=== PATIENT | female | born 1975 | race Caucasian/White ===

== ENCOUNTER → 2016-06-11 | Outpatient (CLI) | payer OTHER ==
[~2016-06-11] MED LIST: FLUO20CA35 PO
== END | disposition home or self-care (01) ==
LOC: C.PAPS 11:40
PROVIDERS: ATTEND Physician Assistant
DX: Z01.419 Encounter for gynecological examination (general) (routine) without abnormal findings (principal)

== ENCOUNTER 2017-03-04 09:19 | Emergency (ER) | payer OTHER ==
[~2017-03-04] VITALS: Ht 157.5 cm; Wt 107.0 kg
[2017-03-04 09:21] VITALS: Ht 157.5 cm; Wt 107.0 kg
--- NOTE | 2017-03-04 09:40 | EMERGENCY ROOM VISIT NOTE ---
History First contact with patient: 09:31 Chief Complaint: ABDOMINAL PAIN Stated Complaint: BURNING FROM BELLY BUTTON TO RIGHT SIDE History of Present Illness The patient is a 41 year old female who presents to the Emergency Room via private vehicle with complaints of "burning from belly button to right side". The patient states that for quite some time now she's been experiencing waxing and waning right upper quadrant abdominal pain. She states that yesterday evening was when she developed a constant right upper quadrant pain now that is severe and will not decrease. She rates the overall pain as a 5/10. She is not had any food today. She denies any diarrhea, nausea or vomiting or chest pain or shortness of breath. She rates the pain as sharp. She states that she has had pain in the area and evaluated previously without any results. Review of Systems A complete 10-point Review of Systems was discussed with the patient, with pertinent positives and negatives listed in the History of Present Illness. All remaining Review of Systems questions can be considered negative unless otherwise specified. Past Medical/Surgical History No pertinent Family History No pertinent Social History Smoking Status: Current Every Day Smoker Alcohol Use: occasionally Pt. lives locally Current/Historical Medications Scheduled Omeprazole (Omeprazole), 1 TAB PO DAILY Ranitidine (Zantac), 150 MG PO BID Physical Exam Vital Signs Date Time Temp Pulse Resp B/P (MAP) Pulse Ox O2 Delivery O2 Flow Rate FiO2 03/04/17 11:42 70 18 111/80 97 Room Air 03/04/17 10:45 86 16 107/76 96 Room Air 03/04/17 09:21 37.1 103 18 138/84 96 Room Air Physical Exam VITAL SIGNS - Vital signs and nursing notes were reviewed. Stable. GENERAL -41-year-old female appearing her stated age who is in no acute distress. Communicates well with provider and answers questions appropriately. SKIN - Without rashes. No petechial rashes. HEAD - NC/AT. EYES - Sclera anicteric. EARS - No deformities of external structures noted on gross examination bilaterally. NOSE - Midline and without cyanosis. No epistaxis or purulent drainage noted. MOUTH/OROPHARYNX - Without perioral cyanosis. NECK - Neck with FROM. LUNGS - Chest wall symmetric without accessory muscle use, intercostals retractions, or central cyanosis. Normal vesicular breath sounds CTA B/L. No wheezes, rales, or rhonchi appreciated. CARDIAC - RRR with S1/S2. No murmur, rubs, or gallops appreciated. ABDOMEN - Abdominal contour normal without pulsations or visible masses. BS normoactive all four quadrants. There is right upper quadrant tenderness. Negative Joyce sign. No palpable masses, hepatosplenomegaly, or ascites noted. EXTREMITIES - No clubbing or peripheral cyanosis. No pretibial edema present. + 5/5 strength noted in UE/LE bilaterally. NEUROLOGIC - Cranial nerves II through XII grossly intact. Sensory intact to light touch throughout. PSYCH - A&O, and cooperates fully with examiner. Pt is very pleasant and interacts well with examiner. Medical Decision & Procedures ER Provider Diagnostic Interpretation: GALLBLADDER-ABD LIMITED CLINICAL HISTORY: RUQ pain pain. Nausea. TECHNIQUE: Ultrasound COMPARISON STUDY: 10/24/2013 FINDINGS: Normal gallbladder. Common bile duct 3 mm. Mild fatty infiltration of liver. Pancreas and right kidney are unremarkable. IMPRESSION: Mild fatty infiltration of liver. Otherwise negative study. The above report was generated using voice recognition software. It may contain grammatical, syntax or spelling errors. Electronically signed by: Canelo Dobson M.D. 03/04/2017 10:30 AM Dictated Date/Time: 03/04/2017 10:29 AM ABD/PELVIS IV CONTRAST ONLY CLINICAL HISTORY: 41 years-old Female presenting with RUQ abd pain. TECHNIQUE: Multidetector CT of the abdomen and pelvis was performed after the administration of intravenous contrast. IV contrast: 95 mL of Optiray 320. A dose lowering technique was used consistent with the principles of ALARA (as low as reasonably achievable). COMPARISON: Ultrasound performed earlier the same day and CT from 07/10/2007. CT DOSE (mGy.cm): The estimated cumulative dose is 1537.29 mGy.cm. FINDINGS: Network Cable Installer topogram: Unremarkable. Lung bases: Minimal dependent changes likely atelectasis. Normal heart size. No pericardial or pleural effusion. Liver: Well-defined hypodensities in the left hepatic lobe, new since 2007, most likely hepatic cysts or hamartomas. Normal liver morphology. Patent hepatic vasculature. Biliary: No intrahepatic or extrahepatic biliary ductal dilatation. Normal gallbladder. Pancreas: Normal. Spleen: Normal. Adrenal glands: Normal. Kidneys and ureters: Normal. No hydronephrosis. Bladder: Incompletely evaluated secondary to underdistention. Pelvic organs: Uterus and ovaries normal. Bowel: Normal appendix. No bowel obstruction. Diverticulosis of the sigmoid colon. Peritoneal cavity: No free fluid or intraperitoneal gas. Lymph nodes: No enlarged lymph nodes in the abdomen or pelvis. Vasculature: Aorta and IVC patent and normal in caliber. Abdominal wall: Small fat-containing umbilical hernia. Musculoskeletal: Normal. IMPRESSION: 1. No acute intra-abdominal pathology. 2. Diverticulosis. 3. No appendicitis. Electronically signed by: Antonino Echavarria M.D. 03/04/2017 12:32 PM Dictated Date/Time: 03/04/2017 12:26 PM Laboratory Results 03/04/17 09:53 Red Blood Count 4.76, Mean Corpuscular Volume 89.1, Mean Corpuscular Hemoglobin 30.5, Mean Corpuscular Hemoglobin Concent 34.2, Mean Platelet Volume 10.0, Neutrophils (%) (Auto) 67.2, Lymphocytes (%) (Auto) 22.6, Monocytes (%) (Auto) 6.5, Eosinophils (%) (Auto) 3.0, Basophils (%) (Auto) 0.4, Neutrophils # (Auto) 6.57, Lymphocytes # (Auto) 2.21, Monocytes # (Auto) 0.64, Eosinophils # (Auto) 0.29, Basophils # (Auto) 0.04 03/04/17 09:53 Test 03/04/17 00:00 03/04/17 09:53 Urine Color YELLOW Urine Appearance CLEAR (CLEAR) Urine pH 6.0 (4.5-7.5) Urine Specific [place] 1.017 (1.000-1.030) Urine Protein NEG (NEG) Urine Glucose (UA) NEG (NEG) Urine Ketones NEG (NEG) Urine Occult Blood NEG (NEG) Urine Nitrite NEG (NEG) Urine Bilirubin NEG (NEG) Urine Urobilinogen NEG (NEG) Urine Leukocyte Esterase SMALL (NEG) Urine WBC (Auto) 1-5 /hpf (0-5) Urine RBC (Auto) 0-4 /hpf (0-4) Urine Hyaline Casts (Auto) 0 /lpf (0-5) Urine Epithelial Cells (Auto) >30 /lpf (0-5) Urine Bacteria (Auto) NEG (NEG) Urine Test NEG (NEG) White Blood Count 9.78 K/uL (4.8-10.8) Red Blood Count 4.76 M/uL (4.2-5.4) Hemoglobin 14.5 g/dL (12.0-16.0) Hematocrit 42.4 % (37-47) Mean Corpuscular Volume 89.1 fL (80-100) Mean Corpuscular Hemoglobin 30.5 pg (25-34) Mean Corpuscular Hemoglobin Concent 34.2 g/dl (32-36) Platelet Count 330 K/uL (130-400) Mean Platelet Volume 10.0 fL (7.4-10.4) Neutrophils (%) (Auto) 67.2 % Lymphocytes (%) (Auto) 22.6 % Monocytes (%) (Auto) 6.5 % Eosinophils (%) (Auto) 3.0 % Basophils (%) (Auto) 0.4 % Neutrophils # (Auto) 6.57 K/uL (1.4-6.5) Lymphocytes # (Auto) 2.21 K/uL (1.2-3.4) Monocytes # (Auto) 0.64 K/uL (0.11-0.59) Eosinophils # (Auto) 0.29 K/uL (0-0.5) Basophils # (Auto) 0.04 K/uL (0-0.2) RDW Standard Deviation 41.5 fL (36.4-46.3) RDW Coefficient of Variation 12.8 % (11.5-14.5) Immature Granulocyte % (Auto) 0.3 % Immature Granulocyte # (Auto) 0.03 K/uL (0.00-0.02) Anion Gap 7.0 mmol/L (3-11) Est Creatinine Clear Calc Drug Dose 112.8 ml/min Estimated GFR () 112.7 Estimated GFR (Non- 97.3 BUN/Creatinine Ratio 17.8 (10-20) Calcium Level 8.6 mg/dl (8.5-10.1) Total Bilirubin 0.4 mg/dl (0.2-1) Direct Bilirubin < 0.1 mg/dl (0-0.2) Aspartate Amino Transf (AST/SGOT) 13 U/L (15-37) Alanine Aminotransferase (ALT/SGPT) 20 U/L (12-78) Alkaline Phosphatase 73 U/L (45-117) Troponin I < 0.015 ng/ml (0-0.045) Total Protein 7.1 gm/dl (6.4-8.2) Albumin 3.6 gm/dl (3.4-5.0) Lipase 179 U/L (73-393) Medical Decision Patient was seen and evaluated as above. She presents today with right upper quadrant abdominal pain. It is not worse with inspiration. It is reproducible on exam. There was no chest pain or shortness of breath. IV access was initiated, any above workup was performed. R Upper quadrant ultrasound was obtained. She declined pain medication. Mild fatty infiltration of liver, otherwise negative. Benefits versus risk of obtaining CT scan was discussed with the patient secondary to her level of pain. Decision was made to scan. Essentially no acute intra-abdominal process. I suspect she most likely that is experiencing reflux/gastritis. A bedside EKG was performed because of her location of pain were to reveals normal sinus rhythm with sinus arrhythmia, left axis deviation. I do not suspect any acute change from her previous EKG. Troponin was negative. Her blood work, CBC reveals no concern of leukocytosis or anemia. Slight elevation of neutrophils. Metabolic process reveals no evidence of kidney or liver failure. Troponin negative. Urine negative. Urine test is negative. She appears stable for outpatient management and again declines pain medication. She'll be given a 7 week supply of Zantac followed by 4 weeks Prilosec. Zantac will be given as it is faster onset with the Prilosec helping for continuous relief. Case was discussed with the attending physician. She was educated upon management, educated upon worrisome symptoms which to return, had questions and provided discharge, and was discharged home in good condition. In evaluation treatment this patient following differential diagnoses were obtained: Gastritis, appendicitis, MA, PE, ascending cholangitis, biliary colic , gallstones, cholecystitis, pancreatitis, among others. Impression Primary Impression: Gastritis Departure Information Dispostion Home / Self-Care Condition GOOD Prescriptions Omeprazole (OMEPRAZOLE) 20 Mg Tab 1 TAB PO DAILY for 40 Days, #40 TAB 1 Refill Prov: Itz Sanchez PA-C 03/04/17 Ranitidine (Zantac) 150 Mg Tab 150 MG PO BID for 7 Days, #14 TAB Prov: Itz Sanchez PA-C 03/04/17 Referrals Falguni Hennessy C.R.N.P. (PCP) Patient Instructions My [facility] Additional Instructions You have been treated in the Emergency Department your Abdominal Pain. Laboratory results and imaging studies have ruled out any emergent causes for your abdominal pain which would warrant admission or surgery. Zantac 150mg by mouth every 12 hours. Prilosec 20mg daily for 4 weeks. I recommend foods low in acid and spice. For pain control, you can use the following [id number] medicines (if >12 yo): - Regular strength (325mg/tab) Tylenol (acetaminophen) 2 tabs every 4-6 hours as needed. Do not exceed 12 tablets in a 24 hour period. Avoid taking more than 3 grams (3000 mg) of Tylenol per day. This includes any other sources of acetaminophen you may take on a regular basis. Drink plenty of water and stay well hydrated. As with any trip to the Emergency Department, you should follow-up with your Primary Care Provider from today's visit. Return to the emergency department if your symptoms persist despite treatment plan outlined above or if the following symptoms occur: increased fevers, chills , worsening nausea/vomiting, blood in your stool or urine.
[2017-03-04 10:16] LABS: BASO % 0.4 %; BASO ABS # 0.04 K/uL (0-0.2); COMPLETE YES; HEMATOCRIT 42.4 % (37-47); IG% 0.3 %; LYMPH % 22.6 %; LYMPH ABS # 2.21 K/uL (1.2-3.4); MEAN CELL VOLUME 89.1 fL (80-100); MEAN CORPUSCULAR HEMOGLOBIN 30.5 pg (25-34); MEAN CORPUSCULAR HGB CONC 34.2 g/dl (32-36); MONO % 6.5 %; NEUT % 67.2 %; PLATELET COUNT 330 K/uL (130-400); RED BLOOD COUNT 4.76 M/uL (4.2-5.4); WHITE BLOOD COUNT 9.78 K/uL (4.8-10.8)
[2017-03-04 10:30] LABS: ALT/SGPT 20 U/L (12-78); BLOOD UREA NITROGEN 14 mg/dl (7-18); BUN/CREATININE RATIO 17.8 (10-20); CALCIUM 8.6 mg/dl (8.5-10.1); CARBON DIOXIDE 23 mmol/L (21-32); CHLORIDE 108 mmol/L (98-107); CREATININE 0.77 mg/dl (0.60-1.20); GLUCOSE 91 mg/dl (70-99); POTASSIUM 3.8 mmol/L (3.5-5.1); SODIUM 138 mmol/L (136-145)
--- NOTE | 2017-03-04 10:31 | DIAGNOSTIC IMAGING REPORT ---
GALLBLADDER-ABD LIMITED CLINICAL HISTORY: RUQ pain pain. Nausea. TECHNIQUE: Ultrasound COMPARISON STUDY: 10/24/2013 FINDINGS: Normal gallbladder. Common bile duct 3 mm. Mild fatty infiltration of liver. Pancreas and right kidney are unremarkable. IMPRESSION: Mild fatty infiltration of liver. Otherwise negative study. The above report was generated using voice recognition software. It may contain grammatical, syntax or spelling errors. Electronically signed by: Canelo Dobson M.D. 03/04/2017 10:30 AM Dictated Date/Time: 03/04/2017 10:29 AM
[2017-03-04 10:33] LABS: ALKALINE PHOSPHATASE 73 U/L (45-117); AST/SGOT 13 U/L (15-37)
[2017-03-04 10:51] LABS: URINE APPEARANCE CLEAR (CLEAR); URINE BILIRUBIN NEG (NEG); URINE COLOR YELLOW; URINE EPITHELIAL CELL AUTO >30 /lpf (0-5); URINE NITRITE NEG (NEG); URINE SPECIFIC GRAVITY 1.017 (1.000-1.030); UROBILINOGEN NEG (NEG); ZZUR CULT IF INDIC CLEAN CATCH NO
[2017-03-04 10:52] LABS: MANUAL MICROSCOPIC REQUIRED? NO; REVIEW REQ? NO
[2017-03-04] MEDS ORDERED: OPTIRAY 320 IV PRN (12:00)
--- NOTE | 2017-03-04 12:34 | DIAGNOSTIC IMAGING REPORT ---
ABD/PELVIS IV CONTRAST ONLY CLINICAL HISTORY: 41 years-old Female presenting with RUQ abd pain. TECHNIQUE: Multidetector CT of the abdomen and pelvis was performed after the administration of intravenous contrast. IV contrast: 95 mL of Optiray 320. A dose lowering technique was used consistent with the principles of ALARA (as low as reasonably achievable). COMPARISON: Ultrasound performed earlier the same day and CT from 07/10/2007. CT DOSE (mGy.cm): The estimated cumulative dose is 1537.29 mGy.cm. FINDINGS: Auricular Therapist topogram: Unremarkable. Lung bases: Minimal dependent changes likely atelectasis. Normal heart size. No pericardial or pleural effusion. Liver: Well-defined hypodensities in the left hepatic lobe, new since 2007, most likely hepatic cysts or hamartomas. Normal liver morphology. Patent hepatic vasculature. Biliary: No intrahepatic or extrahepatic biliary ductal dilatation. Normal gallbladder. Pancreas: Normal. Spleen: Normal. Adrenal glands: Normal. Kidneys and ureters: Normal. No hydronephrosis. Bladder: Incompletely evaluated secondary to underdistention. Pelvic organs: Uterus and ovaries normal. Bowel: Normal appendix. No bowel obstruction. Diverticulosis of the sigmoid colon. Peritoneal cavity: No free fluid or intraperitoneal gas. Lymph nodes: No enlarged lymph nodes in the abdomen or pelvis. Vasculature: Aorta and IVC patent and normal in caliber. Abdominal wall: Small fat-containing umbilical hernia. Musculoskeletal: Normal. IMPRESSION: 1. No acute intra-abdominal pathology. 2. Diverticulosis. 3. No appendicitis. Electronically signed by: Antonino Echavarria M.D. 03/04/2017 12:32 PM Dictated Date/Time: 03/04/2017 12:26 PM
[2017-03-04] MEDS ORDERED: OMEP20TA PO (12:54)
[2017-03-04] MEDS ORDERED: ZNTT/150 PO (12:54)
[2017-03-04 13:15] VITALS: BP 116/78; PULSE 70; TEMP 37.1; O2SAT 97
== END 2017-03-04 13:16 | disposition home or self-care (01) ==
LOC: C.EDB 09:20 → C.EDC 13:16
DX: K29.70 Gastritis, unspecified, without bleeding (principal); F17.210 Nicotine dependence, cigarettes, uncomplicated; Z79.899 Other long term (current) drug therapy

== ENCOUNTER → 2017-04-08 | Outpatient (CLI) | payer OTHER ==
[2017-04-08 14:51] LABS: ALBUMIN 3.7 gm/dl (3.4-5.0); ALKALINE PHOSPHATASE 82 U/L (45-117); ALT/SGPT 25 U/L (12-78); AST/SGOT 14 U/L (15-37); BLOOD UREA NITROGEN 12 mg/dl (7-18); BUN/CREATININE RATIO 14.8 (10-20); CALCIUM 9.2 mg/dl (8.5-10.1); CARBON DIOXIDE 24 mmol/L (21-32); CHLORIDE 105 mmol/L (98-107); CREATININE 0.79 mg/dl (0.60-1.20); EstGFR CKD-E AfrAm 109.3; EstGFR CKD-E NON AfrAm 94.3; HDL CHOLESTEROL 53 mg/dl; SODIUM 136 mmol/L (136-145)
[2017-04-08 14:51] LABS: GLUCOSE 81 mg/dl (70-99)
[2017-04-08 14:52] LABS: ALB/GLOB RATIO 0.9 (0.9-2); BASO % 0.5 %; BASO ABS # 0.04 K/uL (0-0.2); CHOLESTEROL 169 mg/dl (0-200); CHOLESTEROL/HDL RATIO 3.2; COMPLETE YES; EOS % 3.5 %; HEMATOCRIT 43.5 % (37-47); IG# 0.02 K/uL (0.00-0.02); IG% 0.2 %; LDL CHOLESTEROL CALCULATED 90 mg/dl; LYMPH % 30.2 %; LYMPH ABS # 2.58 K/uL (1.2-3.4); MEAN CELL VOLUME 88.6 fL (80-100); MEAN CORPUSCULAR HEMOGLOBIN 30.5 pg (25-34); MEAN CORPUSCULAR HGB CONC 34.5 g/dl (32-36); MEAN PLATELET VOLUME 10.4 fL (7.4-10.4); MONO % 6.2 %; MONO ABS # 0.53 K/uL (0.11-0.59); NEUT % 59.4 %; NEUT ABS # 5.06 K/uL (1.4-6.5); PLATELET COUNT 424 K/uL (130-400); RED BLOOD COUNT 4.91 M/uL (4.2-5.4); RED CELL DISTRIBUTION WIDTH CV 12.6 % (11.5-14.5); RED CELL DISTRIBUTION WIDTH SD 40.3 fL (36.4-46.3); TRIGLYCERIDES 131 mg/dl (0-150); VERY LOW DENSITY LIPOPROT CALC 26 mg/dl; WHITE BLOOD COUNT 8.53 K/uL (4.8-10.8)
== END | disposition home or self-care (01) ==
LOC: C.LAB1850 12:48
DX: E83.51 Hypocalcemia (principal); E66.9 Obesity, unspecified

== ENCOUNTER 2017-05-07 08:02 | Emergency (ER) | payer OTHER ==
[~2017-05-07] VITALS: Ht 157.5 cm; Wt 106.5 kg
[~2017-05-07 08:02] MED LIST changes: -FLUO20CA35 PO; +OMEP20TA PO
[2017-05-07 08:13] VITALS: TEMP 36.9; Ht 157.5 cm; Wt 106.5 kg
[2017-05-07] MEDS ORDERED: HYDROmorphone INJ 0.5 MG/0.5 ML SYR IV STA (08:15)
[2017-05-07] MEDS ORDERED: SODIUM CHLORIDE 0.9% 1000ML 1,000 ML IV STA (08:15)
[2017-05-07] MEDS ORDERED: ONDANSETRON 8 MG/54 ML D5W IV STA (08:15)
[2017-05-07 08:56] LABS: BASO % 0.9 %; BASO ABS # 0.06 K/uL (0-0.2); EOS % 4.3 %; EOS ABS # 0.28 K/uL (0-0.5); HEMATOCRIT 42.1 % (37-47); HEMOGLOBIN 14.5 g/dL (12.0-16.0); IG# 0.01 K/uL (0.00-0.02); LYMPH ABS # 1.84 K/uL (1.2-3.4); MEAN CELL VOLUME 86.8 fL (80-100); MEAN CORPUSCULAR HEMOGLOBIN 29.9 pg (25-34); MEAN CORPUSCULAR HGB CONC 34.4 g/dl (32-36); MEAN PLATELET VOLUME 9.1 fL (7.4-10.4); MONO % 6.4 %; MONO ABS # 0.42 K/uL (0.11-0.59); NEUT % 60.2 %; NEUT ABS # 3.97 K/uL (1.4-6.5); PLATELET COUNT 355 K/uL (130-400); RED CELL DISTRIBUTION WIDTH CV 12.3 % (11.5-14.5); RED CELL DISTRIBUTION WIDTH SD 39.7 fL (36.4-46.3); WHITE BLOOD COUNT 6.58 K/uL (4.8-10.8)
[2017-05-07 09:09] LABS: ALBUMIN 3.5 gm/dl (3.4-5.0); ALT/SGPT 22 U/L (12-78); BLOOD UREA NITROGEN 13 mg/dl (7-18); CALCIUM 8.9 mg/dl (8.5-10.1); CARBON DIOXIDE 22 mmol/L (21-32); CREATININE 0.78 mg/dl (0.60-1.20); GLUCOSE 87 mg/dl (70-99); LIPASE 152 U/L (73-393); SODIUM 139 mmol/L (136-145)
[2017-05-07 09:17] LABS: ALKALINE PHOSPHATASE 67 U/L (45-117); AST/SGOT 12 U/L (15-37); TOTAL PROTEIN 7.2 gm/dl (6.4-8.2)
--- NOTE | 2017-05-07 09:53 | DIAGNOSTIC IMAGING REPORT ---
ABDOMEN LIMITED (US) HISTORY: 41 years-old Female EPIGASTRIC/RUQ ABDOMINAL PAIN acute right upper quadrant abdominal pain COMPARISON: Right upper quadrant ultrasound and CT 03/04/2017 TECHNIQUE: Multiple real-time sonogram images of the abdominal right upper quadrant were obtained assessing grayscale appearance and color flow FINDINGS: Imaged pancreas is unremarkable. There is slightly increased echogenicity with poor through transmission of the liver suggesting fatty infiltration. No focal hepatic mass lesions or intrahepatic biliary ductal dilation. The gallbladder is within normal limits without wall thickening, cholelithiasis or pericholecystic fluid. Common bile duct is normal, 3 mm. Imaged right kidney measures 11.5 x 4.0 x 5.5 cm without hydronephrosis. IMPRESSION: 1. No cholelithiasis or sonographic evidence of acute cholecystitis. 2. Fatty infiltration of the liver. 3. No biliary ductal dilation. The above report was generated using voice recognition software. It may contain grammatical, syntax or spelling errors. Electronically signed by: Dimitry Samuels M.D. 05/07/2017 9:52 AM Dictated Date/Time: 05/07/2017 9:47 AM
--- NOTE | 2017-05-07 10:02 | EMERGENCY ROOM VISIT NOTE ---
ED Visit Note First contact with patient: 08:15 I have seen and examined this patient with Riley Frazier and generally agree with the treatment plan as discussed.
[2017-05-07] MEDS ORDERED: OXYC1TAB3 PO (10:37)
[2017-05-07] MEDS ORDERED: ONDA4TAB10 SL (10:37)
[2017-05-07 11:10] VITALS: BP 126/75; PULSE 72; O2SAT 97
--- NOTE | 2017-05-07 12:23 | EMERGENCY ROOM VISIT NOTE ---
History First contact with patient: 08:15 Chief Complaint: ABDOMINAL PAIN Stated Complaint: GALLBLADDER Nursing Triage Summary: Pt states Cherelle pain off and on for several months, worse today, pt a/ox4, skin w/d/i, lungs decreased. abd obese, hypo BS, pt c/o nausea, states she vomited this AM, states pain a 6 out of 10. History of Present Illness The patient is a 41 year old female who presents to the Emergency Room with complaints of right upper quadrant pain. The patient reports that she has had intermittent pain since February. She is scheduled for a HIDA scan next Wednesday. The patient reports that her pain started when in the shower this morning. She describes it as a stabbing pain that does not radiate to the back , shoulder or neck. She denies any central chest pain, shortness of breath or worsening pain with deep breathing. She has no aggravating or alleviating factors with position. She reports that the pain is worse after eating. She reports nausea without vomiting. She has not noticed any darkened stools. The patient has had no coffee-ground emesis. The patient is currently taking omeprazole in case this is gastric related. All studies and treatment have been provided by her PCP. She rates her discomfort a 7 out of 10. Review of Systems HEENT: Denies dizziness, visual problems, hearing loss, tinnitus. Denies difficulty swallowing or oral lesions. PULMONARY: Denies cough, shortness of breath, sputum production or hemoptysis. CARDIOVASCULAR: Denies chest pain, palpitations, dyspnea on exertion, orthopnea or peripheral edema. GASTROINTESTINAL: See history of present illness. GENITOURINARY: Denies dysuria, frequency, urgency or nocturia. NEUROLOGIC: Denies history of epilepsy, CVA, TIA or chronic headaches. MUSCULOSKELETAL: Denies history of joint tenderness/swelling. SKIN: Denies rashes or lesions. PSYCHIATRIC: Denies history of depression or mental illness. ENDOCRINE: Denies history of diabetes or thyroid disorders. Past Medical/Surgical History Medical Problems: (1) Major Depressive Disorder, Single Episode, Unspecified (2) Morbid obesity with BMI of 40.0-44.9, adult (3) Tobacco Use Disorder (4) UPJ obstruction, acquired Family History No significant family history Social History Smoking Status: Current Every Day Smoker Alcohol Use: occasionally Marital Status: single Occupation Status: employed Current/Historical Medications Scheduled Ondasetron Odt (Zofran Odt), 4 MG SL Q6H Scheduled PRN Oxycodone Ir (Roxicodone Ir), 1-2 TAB PO Q4H PRN for Pain Physical Exam Vital Signs Date Time Temp Pulse Resp B/P (MAP) Pulse Ox O2 Delivery O2 Flow Rate FiO2 05/07/17 11:10 72 18 126/75 97 Room Air 05/07/17 10:28 70 18 107/68 97 Room Air 05/07/17 08:41 79 120/66 97 Room Air 05/07/17 08:35 82 05/07/17 08:13 36.9 80 20 91/54 97 Room Air Physical Exam CONSTITUTIONAL: Obese female, alert and oriented X 3 with positive affect. Patient appears in moderate distress and discomfort. HEENT: Normocephalic, atraumatic. Pupils equal, round and reactive. Nose clear icterus or conjunctival injection/pallor. NECK: Full active range of motion without discomfort. No JVD or carotid bruits. No nuchal rigidity. RESPIRATORY: Clear to auscultation bilaterally with no wheezing, crackles, rhonchi or stridor. Deep breathing does not worsen discomfort. CARDIOVASCULAR: Regular rate and rhythm with no murmurs, rubs or gallops. GASTROINTESTINAL: Bowel sounds present in all quadrants. Patient has notable epigastric and right upper quadrant tenderness to palpation. Positive Joyce's sign. Negative CVA tenderness. No abdominal rigidity, guarding or rebound. MUSCULOSKELETAL: Full range of motion of all joints without discomfort. INTEGUMENTARY: No rash or other significant dermatologic conditions noted. HEMATOLOGIC: No ecchymosis or petechiae. NEUROLOGIC: No focal neurologic deficits noted. Medical Decision & Procedures ER Provider Diagnostic Interpretation: My interpretation of an ECG shows a sinus rhythm at [address] elevation or other conduction abnormalities. Right upper quadrant ultrasound does not show any obvious gallstones, evidence for cholecystitis, common bile duct dilatation or other acute findings. Radiologist report is as follows: ABDOMEN LIMITED (US) HISTORY: 41 years-old Female EPIGASTRIC/RUQ ABDOMINAL PAIN acute right upper quadrant abdominal pain COMPARISON: Right upper quadrant ultrasound and CT 03/04/2017 TECHNIQUE: Multiple real-time sonogram images of the abdominal right upper quadrant were obtained assessing grayscale appearance and color flow FINDINGS: Imaged pancreas is unremarkable. There is slightly increased echogenicity with poor through transmission of the liver suggesting fatty infiltration. No focal hepatic mass lesions or intrahepatic biliary ductal dilation. The gallbladder is within normal limits without wall thickening, cholelithiasis or pericholecystic fluid. Common bile duct is normal, 3 mm. Imaged right kidney measures 11.5 x 4.0 x 5.5 cm without hydronephrosis. IMPRESSION: 1. No cholelithiasis or sonographic evidence of acute cholecystitis. 2. Fatty infiltration of the liver. 3. No biliary ductal dilation. Laboratory Results 05/07/17 08:40 Red Blood Count 4.85, Mean Corpuscular Volume 86.8, Mean Corpuscular Hemoglobin 29.9, Mean Corpuscular Hemoglobin Concent 34.4, Mean Platelet Volume 9.1, Neutrophils (%) (Auto) 60.2, Lymphocytes (%) (Auto) 28.0, Monocytes (%) (Auto) 6.4, Eosinophils (%) (Auto) 4.3, Basophils (%) (Auto) 0.9, Neutrophils # (Auto) 3.97, Lymphocytes # (Auto) 1.84, Monocytes # (Auto) 0.42, Eosinophils # (Auto) 0.28, Basophils # (Auto) 0.06 05/07/17 08:40 Test 05/07/17 08:30 05/07/17 08:40 Urine Color YELLOW Urine Appearance CLEAR (CLEAR) Urine pH 7.0 (4.5-7.5) Urine Specific Thomas 1.005 (1.000-1.030) Urine Protein NEG (NEG) Urine Glucose (UA) NEG (NEG) Urine Ketones NEG (NEG) Urine Occult Blood NEG (NEG) Urine Nitrite NEG (NEG) Urine Bilirubin NEG (NEG) Urine Urobilinogen NEG (NEG) Urine Leukocyte Esterase NEG (NEG) Urine Test NEG (NEG) White Blood Count 6.58 K/uL (4.8-10.8) Red Blood Count 4.85 M/uL (4.2-5.4) Hemoglobin 14.5 g/dL (12.0-16.0) Hematocrit 42.1 % (37-47) Mean Corpuscular Volume 86.8 fL (80-100) Mean Corpuscular Hemoglobin 29.9 pg (25-34) Mean Corpuscular Hemoglobin Concent 34.4 g/dl (32-36) Platelet Count 355 K/uL (130-400) Mean Platelet Volume 9.1 fL (7.4-10.4) Neutrophils (%) (Auto) 60.2 % Lymphocytes (%) (Auto) 28.0 % Monocytes (%) (Auto) 6.4 % Eosinophils (%) (Auto) 4.3 % Basophils (%) (Auto) 0.9 % Neutrophils # (Auto) 3.97 K/uL (1.4-6.5) Lymphocytes # (Auto) 1.84 K/uL (1.2-3.4) Monocytes # (Auto) 0.42 K/uL (0.11-0.59) Eosinophils # (Auto) 0.28 K/uL (0-0.5) Basophils # (Auto) 0.06 K/uL (0-0.2) RDW Standard Deviation 39.7 fL (36.4-46.3) RDW Coefficient of Variation 12.3 % (11.5-14.5) Immature Granulocyte % (Auto) 0.2 % Immature Granulocyte # (Auto) 0.01 K/uL (0.00-0.02) Anion Gap 9.0 mmol/L (3-11) Est Creatinine Clear Calc Drug Dose 111.1 ml/min Estimated GFR () 111.0 Estimated GFR (Non- 95.8 BUN/Creatinine Ratio 17.0 (10-20) Calcium Level 8.9 mg/dl (8.5-10.1) Total Bilirubin 0.3 mg/dl (0.2-1) Direct Bilirubin < 0.1 mg/dl (0-0.2) Aspartate Amino Transf (AST/SGOT) 12 U/L (15-37) Alanine Aminotransferase (ALT/SGPT) 22 U/L (12-78) Alkaline Phosphatase 67 U/L (45-117) Total Creatine Kinase 67 U/L (26-192) Troponin I < 0.015 ng/ml (0-0.045) Total Protein 7.2 gm/dl (6.4-8.2) Albumin 3.5 gm/dl (3.4-5.0) Lipase 152 U/L (73-393) The above labs were reviewed. LFTs and lipase are normal. CBC, partial renal profile as well as urinalysis were otherwise normal. Urine is negative. Medications Administered Medications (Trade) Dose Ordered Sig/Jim Route Start Time Stop Time Status Last Admin Dose Admin Sodium Chloride 1,000 ml @ 999 mls/hr Q1H1M STAT IV 05/07/17 08:15 05/07/17 09:15 DC 05/07/17 09:06 999 MLS/HR Ondansetron HCl (Zofran 8mg Iv) 8 mg NOW STAT IV 05/07/17 08:15 05/07/17 08:18 DC 05/07/17 09:21 8 MG Hydromorphone HCl (Dilaudid Inj) 0.5 mg NOW STAT IV 05/07/17 08:15 05/07/17 08:18 DC 05/07/17 09:06 0.5 MG ED Course Patient history and physical exam were performed. Nurse's notes were reviewed. Vital signs were reviewed, initially showing hypertension. It is noted that the patient had normal blood pressure the remainder of her ER evaluation. The patient is also afebrile. O2 saturation is normal, and is not tachycardic. IV access was established, and labs were drawn. The patient was hydrated with a liter normal saline. She was administered IV Dilaudid and Zofran for pain and nausea. Labs were reviewed and were grossly normal. ECG was performed and was normal. Abdominal ultrasound did not show any evidence for gallstones, cholecystitis, obvious pancreatitis or other acute findings. The patient was also evaluated by Dr. Ruiz, ED attending physician, who agrees with workup and outpatient plan of care. The patient was encouraged to follow-up with her PCP for recheck within the next 2-3 days. She was instructed to continue with her currently scheduled HIDA scan. She is welcome to return to the emergency department for any progressively worsening pain, persistent vomiting, developing fever or other concerning symptoms. The patient was provided prescriptions for OxyIR 5 mg and Zofran ODT. She was instructed to avoid high protein, fatty or spicy foods. The patient was happy with plan of care, voice understanding of all discharge instructions, and rated her discomfort a 3 out of 10 at the conclusion of my exam. Medical Decision Patient presents with symptoms most consistent with biliary colic. Her ultrasound and laboratory studies today are not suggestive of cholecystitis, hepatitis or pancreatitis. Peptic ulcer disease or acute gastritis is also certainly possible. I do not suspect bowel perforation, abdominal obstruction or other acute GI etiologies. The patient has had no coffee-ground emesis or melena to suggest GI bleed. Urinalysis is not suggestive of UTI, and clinical exam is not consistent with pyelonephritis. Clinical exam also is not suggestive of peritonitis, appendicitis or diverticulitis. I do not suspect cardiopulmonary etiologies. ECG and troponin were normal. [facility] Drug Monitoring Program Search Results: patient reviewed within database, no issues identified Medication Reconcilliation Current Medication List: was personally reviewed by me Blood Pressure Screening Patient's blood pressure: Normal blood pressure Impression Primary Impression: Right upper quadrant abdominal pain Departure Information Dispostion Home / Self-Care Prescriptions Ondasetron Odt (ZOFRAN ODT) 4 Mg Tab 4 MG SL Q6H for Nausea, #10 TAB Prov: Riley Frazier PA 05/07/17 Oxycodone Ir (Roxicodone Ir) 5 Mg Tab 1-2 TAB PO Q4H Y for Pain, #24 TAB For Initial Treatment Prov: Riley Frazier PA 05/07/17 Forms Call Back Authorization, HOME CARE DOCUMENTATION FORM, IMPORTANT VISIT INFORMATION Patient Instructions [facility] Additional Instructions [place] diet for now. Avoid high protein, fatty or spicy foods. Tylenol 1000 mg every 6-8 hours for baseline pain relief. OxyIR if needed for worse pain. Do not drink alcohol or drive while taking OxyIR. Follow-up with your PCP for recheck in 2-3 days. Continue with your scheduled HIDA scan for next Wednesday. Return to the emergency department for any significant worsening pain, developing fever or persistent vomiting.
== END 2017-05-07 12:05 | disposition home or self-care (01) ==
LOC: C.EDB 08:03
DX: R10.11 Right upper quadrant pain (principal); F32.9 Major depressive disorder, single episode, unspecified; E66.01 Morbid (severe) obesity due to excess calories; Z68.41 Body mass index [BMI] 40.0-44.9, adult; F17.200 Nicotine dependence, unspecified, uncomplicated

== ENCOUNTER → 2017-05-13 | Outpatient (CLI) | payer OTHER ==
[~2017-05-13] MED LIST changes: -OMEP20TA PO; +ONDA4TAB10 SL; +OXYC1TAB3 PO
--- NOTE | 2017-05-13 14:05 | DIAGNOSTIC IMAGING REPORT ---
NUCLEAR HEPATOBILIARY SCAN CLINICAL HISTORY: Right upper quadrant abdominal pain. COMPARISON STUDY: Abdominal ultrasound dated 05/07/2017. TECHNIQUE: Dynamic images of the liver and anterior abdomen were obtained every 5 minutes for a total of 60 minutes following the IV administration of 5.5mCi of technetium 99m Choletec. FINDINGS: The hepatobiliary scan shows prompt and homogeneous hepatic uptake. There is visualized activity within the intra and extrahepatic biliary tree at 15 minutes, and within the gallbladder at 20 minutes. There is normal biliary to bowel transit, with small bowel visualized by 55 minutes. IMPRESSION: Unremarkable nuclear hepatobiliary scan. There is no scintigraphic evidence of cholecystitis. Electronically signed by: Wilbert Maria M.D. 05/13/2017 2:04 PM Dictated Date/Time: 05/13/2017 2:03 PM
== END | disposition home or self-care (01) ==
LOC: C.NUCL 12:31
PROVIDERS: ATTEND Nurse Practitioner Adult Health
DX: R10.11 Right upper quadrant pain (principal)